=== PATIENT | female | born 1965 | race Caucasian/White ===

== ENCOUNTER 2017-06-26 09:57 | Emergency (ER) | payer OTHER ==
[~2017-06-26] VITALS: Ht 165.1 cm; Wt 72.6 kg
[~2017-06-26 09:57] MED LIST: ADVAIR 100-501 EACH; ALBUTEROL2.5 MG/32; ATIVAN0.5 MG; LEXAPRO 10 MG T10 M1 PO; PERCOCET 5-3251 EACH; PERCOCET PO; PHENTERMINE HCL30 MG PO; VENLAFAXIN75 MG/1 T2 PO; XOPENEX0.63 MG/3 IH; ZANAFLEX2 M2 PO
[2017-06-26] MEDS ORDERED: VENTOLIN HFA 1818 GM INH (10:16)
[2017-06-26] MEDS ORDERED: AMANTADINE 100100 MG PO (10:17)
[2017-06-26 12:00] VITALS: BP 141/95
== END 2017-06-26 12:03 | disposition home or self-care (01) ==
LOC: M.ERS 09:57
DX: S63.602A Unspecified sprain of left thumb, initial encounter (principal); J45.909 Unspecified asthma, uncomplicated; F17.210 Nicotine dependence, cigarettes, uncomplicated; Z88.5 Allergy status to narcotic agent; Z88.0 Allergy status to penicillin; Z88.1 Allergy status to other antibiotic agents; W01.0XXA Fall on same level from slipping, tripping and stumbling without subsequent striking against object, initial encounter; Y93.89 Activity, other specified; Y92.89 Other specified places as the place of occurrence of the external cause; Y99.8 Other external cause status

== ENCOUNTER → 2020-10-08 | Outpatient (CLI) | payer OTHER ==
[~2020-10-08] MED LIST changes: +AMANTADINE 100100 MG PO; +VENTOLIN HFA 1818 GM INH
== END ==
LOC: M.RAD 09-23 15:29 → M.ULTRA 09-30 10:30 → M.RAD 10-04 10:00
PROVIDERS: ATTEND Registered Nurse Diabetes Educator
DX: N60.11 Diffuse cystic mastopathy of right breast (principal); N60.12 Diffuse cystic mastopathy of left breast; Z80.3 Family history of malignant neoplasm of breast; R92.8 Other abnormal and inconclusive findings on diagnostic imaging of breast